=== PATIENT | female | born 1985 | race Caucasian/White ===

== ENCOUNTER 2018-04-05 06:55 | Day surgery (SDC) | payer BC ==
[~2018-04-05] VITALS: Ht 172.7 cm; Wt 70.3 kg
[~2018-04-05 06:55] MED LIST: ABILIFY10 MG PO; ABILIFY15 MG PO; ADVAIR 100/501 DISK IH; ADVAIR 250/501 DISK IH; ADVAIR HFA120 INHALA IH; ALPRAZOLAM0.5 MG PO; ANAPROX DS550 M1 PO; ASACOL HD800 MG PO; ASACOL400 MG PO; ATIVAN0.5 MG PO; AZASAN100 MG PO; AZATHIOPRINE50 MG PO; Advair 500/50 Diskus IH; Ambien PO; BALSALAZIDE DI750 MG PO; BENTYL20 MG PO; BUPROPION XL150 MG PO; CALCIUM 500 +1 EACH PO; CALTRATE PLUS1 EACH PO; CHANTIX1 MG PO; CIPRO500 MG PO; CLARITIN10 MG PO; COLAZAL PO; COLAZAL750 MG; COLAZAL750 MG PO; COMBIVENT200 INHALA IH; CYANOCOBAL1000 MCG/2 IM; CYANOCOBALAM1000 MCG PO; DESYREL100 MG PO; DICYCLOMINE HCL20 MG PO; DuoNeb IH; EFFEXOR XR150 MG PO; EFFEXOR75 MG PO; ENPRESSE1 EACH PO; ESCITALOPRAM OX20 MG PO; FEOSOL325 MG PO; FERROUS SULFAT325 MG PO; FLAGYL500 MG PO; FLONASE16 G1 BOTH NARES; FLUTICASONE PRO16 GM BOTH NARES; Feosol PO; HUMIRA40 MG/0.8 SC; HYDROCODON-ACE1 EAC7 PO; Habitrol,Nicoderm CQ TD; Hydrodiuril,Oretic,E PO; IMODIUM A-D2 MG PO; IRON SUPPLEMEN325 MG PO; IRON TABLET PO; LEVAQUIN750 MG PO; LEXAPRO10 MG PO; LITHIUM CARBON450 MG PO; LOPERAMIDE2 MG PO; Levaquin PO; Lexapro PO; MONTELUKAST SOD10 MG PO; NICOTINE PATCH1 EAC1 TD; NORCO 5/3251 TABLET PO; ONE DAILY1 EAC3 PO; OXYCODONE HCL5 MG PO; PANTOPRAZOLE SO40 MG PO; PERCOCET 5/31 TABLET PO; PREDNISONE10 MG PO; PREDNISONE20 MG PO; PREDNISONE50 MG PO; PRILOSEC20 MG PO; PROAIR HFA8.5 GM IH; PROTONIX40 MG PO; PROVENTIL,2.5 MG/0.5 IH; PROVENTIL,2.5 MG/3 M IH; PROZAC40 MG PO; Pepcid PO; Proventil,Ventolin H IH; QUETIAPINE FUM100 MG PO; REQUIP0.5 MG PO; RISPERIDONE2 MG PO; ROBITUSSIN AC,T10 ML PO; Remove Nicotine Patch TD; Robitussin AC,Tussi- PO; SEROQUEL200 MG PO; SINGULAIR10 MG PO; Singulair PO; TOPAMAX100 MG PO; TOPAMAX200 MG PO; TOPIRAMATE100 MG PO; TOPIRAMATE25 MG PO; TYLENOL REGULA325 MG PO; Theo-Dur,Theocron PO; Topamax PO; Triphasil-28,Trivora PO; ULTRAM50 MG PO; VENLAFAXINE HCL75 M2 PO; VENLAFAXINE HCL75 M3 PO; VENTOLIN HFA18 GM IH; WELLBUTRIN XL300 MG PO; XANAX0.25 MG PO; XANAX0.5 MG PO; ZITHROMAX Z-PA250 MG PO; ZOFRAN4 MG PO; ZOLPIDEM TARTRAT5 MG PO; ZYRTEC10 M2 PO; Zithromax PO; [UNRECOGNIZED DRUG - OTHER]; predniSONE PO; risperDAL PO
[2018-04-05 07:55] VITALS: BP 126/70
[2018-04-05 10:41] VITALS: BP 126/75
[2018-04-05 11:06] VITALS: BP 112/58
== END 2018-04-05 11:07 | disposition home or self-care (01) ==
LOC: SDC 06:55
PROC: 0UBC7ZX Excision of Cervix, Via Natural or Artificial Opening, Diagnostic (ICD-10-PCS; principal; 2018-04-05)
DX: D06.9 Carcinoma in situ of cervix, unspecified (principal); J45.909 Unspecified asthma, uncomplicated; F17.200 Nicotine dependence, unspecified, uncomplicated; K21.9 Gastro-esophageal reflux disease without esophagitis; G25.81 Restless legs syndrome; E53.8 Deficiency of other specified B group vitamins; F10.21 Alcohol dependence, in remission; Z82.49 Family history of ischemic heart disease and other diseases of the circulatory system; Z83.49 Family history of other endocrine, nutritional and metabolic diseases; Z82.5 Family history of asthma and other chronic lower respiratory diseases; Z88.0 Allergy status to penicillin; Z91.040 Latex allergy status; Z91.013 Allergy to seafood
CPT/HCPCS: 87641; 88305; J1885; J2250; J3010